=== PATIENT | female | born 1970 | race Caucasian/White ===

== ENCOUNTER 2019-10-24 22:01 | Emergency (ER) | payer MEDICAID ==
[~2019-10-24] VITALS: Ht 167.6 cm; Wt 73.0 kg
[2019-10-25 00:07] VITALS: BP 107/64
== END 2019-10-25 00:06 | disposition home or self-care (01) ==
LOC: ER 22:03
DX: S11.90XD Unspecified open wound of unspecified part of neck, subsequent encounter (principal); G89.0 Central pain syndrome; Z90.49 Acquired absence of other specified parts of digestive tract; Z98.890 Other specified postprocedural states; X58.XXXD Exposure to other specified factors, subsequent encounter
CPT/HCPCS: 99284